=== PATIENT | female | born 1970 | race Two or more races ===

== ENCOUNTER → 2017-09-18 | Outpatient (CLI) | payer OTHER | END | disposition home or self-care (01) | LOC: PPHC 14:20 | DX: J06.9 Acute upper respiratory infection, unspecified (principal) ==

== ENCOUNTER → 2017-09-18 | Outpatient (CLI) | payer OTHER | END | disposition home or self-care (01) | LOC: RAD 15:23 | DX: R05 Cough (principal) ==

== ENCOUNTER 2024-05-07 16:48 | Inpatient (IN) | payer OTHER ==
[~2024-05-07] VITALS: Ht 157.5 cm; Wt 140.6 kg
--- NOTE | 2024-05-07 18:09 | NUR ---
PACIENTE ALERTA Y ORIENTADA X3 REFERIDA A SEB DE EMERGENCIAS POR DR. CHOW PARA REALIZAR PROCEDIMIENTO QUIRURGICO. AL MOMENTO DE TRIAGE PACIENTE REFIERE DOLOR EN AREA PELVICA Y SANGRADO VAGINAL. SE GINA S/V Y SE UBICA.
[2024-05-07] MEDS ORDERED: MORPHINE SULFATE 4 MG/ML VIAL IV PRN (18:45)
[2024-05-07] MEDS ORDERED: RINGERS SOLUTION,LACTATED 1,000 ML IV SCH (18:45)
[2024-05-07 19:29] LABS: HEMATOCRIT 35.5 % (36.0-45.00); HEMOGLOBIN 12.1 g/dL (12.0-15.00); MEAN CELL VOLUME 87.2 fL (80.00-100.00); MEAN CORPUSCULAR HEMOGLOBIN 29.8 pg (27.00-32.0); MEAN CORPUSCULAR HGB CONC 34.2 g/dl (32.0-36.0); PLATELET COUNT 408 K/uL (150-450); RED BLOOD COUNT 4.07 M/uL (4.00-6.00); RED CELL DISTRIBUTION WIDTH 13.2 % (11.5-14.5)
[2024-05-07 19:40] LABS: ALBUMIN 3.1 gm/dL (3.4-5.0); BILIRUBIN TOTAL 0.21 mg/dL (0.3-1.2); CREATININE SERUM 0.68 mg/dL (0.55-1.02); GFR 91.22; GLOBULINA 5.4 G/DL (2.4-3.5); INR 1.09; PARTIAL THROMBOPLASTIN TIME 24.8 SECONDS (22.0-34.0); POTASSIUM 3.64 mEq/L (3.5-5.1); PROTHROMBIN TIME 11.8 SECONDS (9.0-11.5); TOTAL PROTEIN 8.5 gm/dL (6.4-8.2)
[2024-05-07 20:27] VITALS: BP 120/76
[2024-05-08] VITALS: BP 90/58
[2024-05-08 02:14] LABS: URINE APPEARANCE Turbid; URINE BILIRRUBIN Negative (NEGATIVE); URINE BLOOD Large; URINE COLOR Yellow; URINE GLUCOSE Negative (NEGATIVE); URINE KETONE 15 (NEGATIVE); URINE LEUKOCYTE Large; URINE NITRATE Negative; URINE PROTEIN 30 (NEGATIVE); URINE UROBILINOGEN 0.2 E.U./dl
[2024-05-08 02:15] LABS: URINE BACTERIA 1048.3 uL (0.0-1933); URINE EPITHELIAL CELLS 8.8 uL (0.0-38.8); URINE RBC 942.2 uL (0.0-20.8); URINE WBC 1048.7 uL (0.0-23.2)
[2024-05-08] MEDS ORDERED: CEFAZOLIN SODIUM 1,000 MG VIAL IV ONE (06:00)
[2024-05-08] MEDS ORDERED: CEFOXITIN SODIUM 2,000 MG in DEXTROSE 5 % IN WATER 100 ML IV SCH (06:50)
[2024-05-08 08:04] VITALS: BP 99/57
[2024-05-08] MEDS ORDERED: HEMOSTATIC MATRIX 1 KIT KIT TOP ONE (11:00)
[2024-05-08] MEDS ORDERED: CEFOXITIN SODIUM 2,000 MG in 0.9 % SODIUM CHLORIDE 100 ML IV SCH (12:26)
[2024-05-08] MEDS ORDERED: MORPHINE SULFATE 4 MG/ML VIAL IV ONE ×2 (13:20→14:55)
[2024-05-08] MEDS ORDERED: PROMETHAZINE HCL 25 MG/ML AMPUL IV SCH (16:00)
[2024-05-08] MEDS ORDERED: MEPERIDINE HCL/PF 50 MG/ML VIAL IV SCH (16:00)
[2024-05-08 16:43] LABS: HEMATOCRIT 28.2 % (36.0-45.00); HEMOGLOBIN 9.7 g/dL (12.0-15.00); MEAN CELL VOLUME 87.1 fL (80.00-100.00); MEAN CORPUSCULAR HEMOGLOBIN 30.1 pg (27.00-32.0); MEAN CORPUSCULAR HGB CONC 34.6 g/dl (32.0-36.0); PLATELET COUNT 382 K/uL (150-450); RED BLOOD COUNT 3.23 M/uL (4.00-6.00); RED CELL DISTRIBUTION WIDTH 12.6 % (11.5-14.5)
[2024-05-08] MEDS ORDERED: DOXYCYCLINE HYCLATE 100MG IV SCH (17:00)
[2024-05-08 20:28] VITALS: BP 105/70
[2024-05-08] MEDS ORDERED: FAMOTIDINE/PF 20 MG/2 ML VIAL IV SCH (21:00)
[2024-05-08 22:17] VITALS: O2SAT 100
[2024-05-09] VITALS: BP 114/76
[2024-05-09] MEDS ORDERED: IBUprofen 800 MG TABLET PO SCH (02:00)
[2024-05-09] MEDS ORDERED: SIMETHICONE 125 MG CAPSULE PO SCH (05:00)
[2024-05-09 06:39] LABS: HEMOGLOBIN 13.2 g/dL (12.0-15.00); MEAN CORPUSCULAR HEMOGLOBIN 29.2 pg (27.00-32.0); MEAN CORPUSCULAR HGB CONC 34.7 g/dl (32.0-36.0); PLATELET COUNT 344 K/uL (150-450); RED BLOOD COUNT 4.52 M/uL (4.00-6.00); RED CELL DISTRIBUTION WIDTH 15.1 % (11.5-14.5)
[2024-05-09 08:31] VITALS: BP 122/77
[2024-05-09] MEDS ORDERED: LACTOBACILLUS ACIDOPHILUS 1 CAP CAP PO SCH (09:00)
[2024-05-09] MEDS ORDERED: GABAPENTIN 300 MG CAPSULE PO SCH (09:00)
[2024-05-09] MEDS ORDERED: POLYETHYLENE GLYCOL 3350 17 GM BLIST.PACK PO SCH (09:00)
[2024-05-09 16:33] VITALS: BP 112/73
[2024-05-10 01:42] VITALS: BP 93/55
[2024-05-10 08:36] VITALS: BP 100/65
[2024-05-10 11:40] LABS: HEMATOCRIT 34.1 % (36.0-45.00); HEMOGLOBIN 11.9 g/dL (12.0-15.00); MEAN CELL VOLUME 85.1 fL (80.00-100.00); MEAN CORPUSCULAR HEMOGLOBIN 29.7 pg (27.00-32.0); MEAN CORPUSCULAR HGB CONC 34.9 g/dl (32.0-36.0); PLATELET COUNT 345 K/uL (150-450); RED BLOOD COUNT 4.01 M/uL (4.00-6.00); RED CELL DISTRIBUTION WIDTH 14.7 % (11.5-14.5)
[2024-05-10 12:55] LABS: BILIRUBIN TOTAL 0.51 mg/dL (0.3-1.2); CALCIUM 7.9 mg/dL (8.5-10.1); CREATININE SERUM 0.65 mg/dL (0.55-1.02); GFR 96.09; GLOBULINA 3.6 G/DL (2.4-3.5); POTASSIUM 3.85 mEq/L (3.5-5.1); TOTAL PROTEIN 5.6 gm/dL (6.4-8.2)
[2024-05-10 17:13] VITALS: BP 98/62
[2024-05-11 00:04] VITALS: BP 100/63
[2024-05-11 05:00] VITALS: BP 95/60
[2024-05-11 13:44] VITALS: BP 100/66
[2024-05-11] MEDS ORDERED: MAGNESIUM HYDROXIDE 30 ML BLIST.PACK PO NR (14:00)
[2024-05-11 16:00] VITALS: BP 120/78
[2024-05-11 23:48] VITALS: BP 107/70
[2024-05-12 05:00] VITALS: BP 94/64
[2024-05-12 08:08] VITALS: BP 100/60
[2024-05-12 17:09] VITALS: BP 109/69
[2024-05-12 21:00] VITALS: BP 90/60
[2024-05-13 00:40] VITALS: BP 100/62
[2024-05-13 06:58] LABS: HEMATOCRIT 28.4 % (36.0-45.00); MEAN CELL VOLUME 85.5 fL (80.00-100.00); MEAN CORPUSCULAR HEMOGLOBIN 30.1 pg (27.00-32.0); MEAN CORPUSCULAR HGB CONC 35.2 g/dl (32.0-36.0); PLATELET COUNT 339 K/uL (150-450); RED BLOOD COUNT 3.32 M/uL (4.00-6.00); RED CELL DISTRIBUTION WIDTH 13.9 % (11.5-14.5)
[2024-05-13 07:38] LABS: BILIRUBIN TOTAL 0.34 mg/dL (0.3-1.2); CREATININE SERUM 0.64 mg/dL (0.55-1.02); GFR 97.83; GLOBULINA 3.4 G/DL (2.4-3.5); POTASSIUM 4.01 mEq/L (3.5-5.1); TOTAL PROTEIN 5.4 gm/dL (6.4-8.2)
[2024-05-13 08:03] VITALS: BP 107/73
[2024-05-13] MEDS ORDERED: SOD FERRIC GLUC COMPLX/SUCROSE 125 MG in 0.9 % SODIUM CHLORIDE 100 ML IV SCH (09:00)
[2024-05-13 15:42] VITALS: BP 96/61
[2024-05-14 00:23] VITALS: BP 106/66
[2024-05-14 05:08] LABS: HEMATOCRIT 29.7 % (36.0-45.00); MEAN CELL VOLUME 86.6 fL (80.00-100.00); MEAN CORPUSCULAR HEMOGLOBIN 29.4 pg (27.00-32.0); PLATELET COUNT 378 K/uL (150-450); RED BLOOD COUNT 3.43 M/uL (4.00-6.00); RED CELL DISTRIBUTION WIDTH 14.2 % (11.5-14.5)
[2024-05-14 05:45] LABS: HEMOGLOBIN 10.1 g/dL (12.0-15.00)
[2024-05-14 05:46] LABS: ALBUMIN 2.1 gm/dL (3.4-5.0); BILIRUBIN TOTAL 0.19 mg/dL (0.3-1.2); CALCIUM 8.4 mg/dL (8.5-10.1); CREATININE SERUM 0.64 mg/dL (0.55-1.02); GFR 97.83; GLOBULINA 3.7 G/DL (2.4-3.5); POTASSIUM 4.91 mEq/L (3.5-5.1); TOTAL PROTEIN 5.8 gm/dL (6.4-8.2)
[2024-05-14 07:40] VITALS: BP 99/62
[2024-05-14 15:27] VITALS: BP 117/76
[2024-05-14 20:51] VITALS: BP 105/69
[2024-05-15 00:39] VITALS: BP 93/58
[2024-05-15] MEDS ORDERED: INTESTINEX680 M1 PO (06:24)
[2024-05-15] MEDS ORDERED: GABAPENTIN300 MG PO (06:25)
[2024-05-15] MEDS ORDERED: IBUPROFEN800 MG PO (06:25)
[2024-05-15] MEDS ORDERED: SIMETHICONE125 M1 PO (06:25)
[2024-05-15] MEDS ORDERED: AMOX1TAB5 PO (06:26)
[2024-05-15 07:52] VITALS: BP 100/60
== END 2024-05-15 10:51 | disposition home or self-care (01) | DRG 742 ==
LOC: ER 16:50 → OB/GYN 19:06
PROVIDERS: Colon & Rectal Surgery; Urology; ADMIT Obstetrics & Gynecology; ATTEND Obstetrics & Gynecology
PROC: 0DNW0ZZ Release Peritoneum, Open Approach (ICD-10-PCS; 2024-05-08)
PROC: 0TQB0ZZ Repair Bladder, Open Approach (ICD-10-PCS; 2024-05-08)
PROC: 30233N1 Transfusion of Nonautologous Red Blood Cells into Peripheral Vein, Percutaneous Approach (ICD-10-PCS; 2024-05-08)
PROC: 0DBH0ZZ Excision of Cecum, Open Approach (ICD-10-PCS; 2024-05-08)
PROC: 0UT90ZZ Resection of Uterus, Open Approach (ICD-10-PCS; principal; 2024-05-08 12:15)
PROC: 0UT70ZZ Resection of Bilateral Fallopian Tubes, Open Approach (ICD-10-PCS; 2024-05-08 12:15)
PROC: 0UT20ZZ Resection of Bilateral Ovaries, Open Approach (ICD-10-PCS; 2024-05-08 12:15)
DX: D25.9 Leiomyoma of uterus, unspecified (principal); N99.71 Accidental puncture and laceration of a genitourinary system organ or structure during a genitourinary system procedure; N32.89 Other specified disorders of bladder; Z20.822 Contact with and (suspected) exposure to COVID-19; K37 Unspecified appendicitis; D64.9 Anemia, unspecified; R19.00 Intra-abdominal and pelvic swelling, mass and lump, unspecified site; R10.2 Pelvic and perineal pain; N83.8 Other noninflammatory disorders of ovary, fallopian tube and broad ligament

== ENCOUNTER 2024-05-21 09:03 | Outpatient (CLI) | payer OTHER ==
[~2024-05-21 09:03] MED LIST: AMOX1TAB5 PO; GABAPENTIN300 MG PO; IBUPROFEN800 MG PO; INTESTINEX680 M1 PO; SIMETHICONE125 M1 PO
== END 2024-05-21 09:13 | disposition home or self-care (01) ==
LOC: TOM 09:03
PROVIDERS: ATTEND Obstetrics & Gynecology
DX: S37.23XA Laceration of bladder, initial encounter (principal)